=== PATIENT | male | born 1995 | race African-American/Black ===

== ENCOUNTER 2024-02-27 10:40 | Emergency (ER) | payer MEDICAID ==
[~2024-02-27] VITALS: Ht 185.4 cm; Wt 100.0 kg
[2024-02-27 10:42] VITALS: O2SAT 98
[2024-02-27] MEDS ORDERED: PENICILLIN G BENZATHINE 1,200,000 UNITS/2ML SYR IM ONE (11:15)
[2024-02-27] MEDS ORDERED: IBUP-2030 MT (12:01)
[2024-02-27] MEDS: DEXAMETHASONE 4MG/ML 1ML VIAL IM ONE (12:25)
[2024-02-27] MEDS: PENICILLIN G BENZATHINE 1,200,000 UNITS/2ML SYR IM NR (12:33)
[2024-02-27] MEDS: KETOROLAC 30MG/ML VIAL IM ONE (12:33)
[2024-02-27 15:52] VITALS: BP 132/82; PULSE 83; RESP 16; TEMP 99
== END 2024-02-27 15:56 | disposition home or self-care (01) ==
LOC: ER 10:40
DX: J03.90 Acute tonsillitis, unspecified (principal)
CPT/HCPCS: 99284; 87430; 96372; J0561; J1100; J1885